=== PATIENT | female | born 1985 | race Caucasian/White ===

== ENCOUNTER 2019-09-14 11:46 | Inpatient (IN) ==
[2019-09-14] MEDS ORDERED: OXYTOCIN 30 UNITS/500 ML BAG IV PRN (12:17)
--- NOTE | 2019-09-14 12:24 | Labor Progress Brief Note ---
Date of Service September 14, 2019 Subjective Review of Systems All systems reviewed & are unremarkable except as noted in HPI & below Assessment & Plan (1) PROM (premature rupture of membranes): PROM confirmed - ruptured for clear, cervix unripe. Begin IOL. Discussed with patient and given she is breathing through contractions every 3-4 min, will not use cytotec and will instead go directly to pitocin. Epidural on request. Physical Exam Constitutional: WD/WN, vitals as above Eyes: PERRL, conjunctivae normal, anicteric sclerae ENMT: external ear and nose normal, oropharynx normal Neck: supple Respiratory: normal respiratory effort and able to speak in complete sentences; no respiratory distress Cardiovascular: Rate/Rhythm: regular rate and regular rhythm Extremities: + pedal edema Gastrointestinal (Abdomen): Gravid / AGA, nontender Musculoskeletal: no cyanosis or clubbing, extremities motor strength 5/5 Skin: no rashes, warm and dry Neurologic: patellar DTR's 2+ bilat, sensation intact Psychiatric: A+Ox3, euthymic affect Genitourinary: Speculum/Bimanual Exam: no vaginal lesions, no vaginal bleeding and uterus nontender OB Exam Abdomen: + vertex, + estimated weight (7) and + regular contractions (Q3) Manual OB Exam: + cervical dilation fingertip, + cervical effacement 10%, + station (medium firmness and midposition) high and + amniotic fluid clear OB Exam Monitor Tracing: + external FHT monitor used, + external uterine monitor used and + category I Lymphatic: no cervical or axillary lymphadenopathy Results & Data ([facility]) Vital Signs (Past 12 Hours) Vital Signs Temp Pulse Resp BP 09/14/19 11:56 98.6 F 82 20 115/72 Coding Level of Care Code None Diagnoses PROM (premature rupture of membranes) O42.90
[2019-09-14] MEDS: LACTATED RINGER'S 1,000 ML IV PRN ×2 (12:32→20:44)
[2019-09-14 12:40] LABS: Hemoglobin 12.2 g/dL (12.0-16.0); Mean Corpuscular Hemoglobin 29.8 pg (25-34); Mean Corpuscular Hgb Conc 32.1 g/dL (32-36); Mean Corpuscular Volume 92.7 fL (80-100); Mean Platelet Volume 12.6 fL (7.4-10.4); Platelet Count 135 K/uL (130-400); RDW Standard Deviation 44.1 fL (36.4-46.3); White Blood Count 8.42 K/uL (4.8-10.8)
[2019-09-14] MEDS: OXYTOCIN 30 UNITS/500 ML BAG IV PRN (12:48)
--- NOTE | 2019-09-14 13:58 | History & Physical Report ---
Date of Service September 14, 2019 Assessment & Plan (1) : Induction of labor History of Present Illness Primary Care Provider: Pratik Cohn MD Isabel is a 34 y/o female ; LMP on 12/02/18; to undergo IOL for PROM; no complications during this . Contractions every 3-4 min; good movement Labs: (09/14/19) Blood type: B positive Antibody screen: Neg H.2 Hct: 38.0 WBC: 8.42 Plt: 135 Rubella: Immune VDRL/RPR: Nonreactive Gonorrhea: Neg Chlamydia: Neg HIV: Neg HbSAg: Neg GBS Neg Allergies Allergy/AdvReac Type Severity Reaction Status Date / Time latex Allergy Intermediate RASH Verified 09/08/19 14:46 Home Medications Home Medications Medication Instructions Recorded Confirmed Type PNV cmb#95-ferrous fumarate-FA 1 tab PO DAILY 09/14/19 09/14/19 History [] docusate sodium [Colace] 100 mg PO DAILY 09/14/19 09/14/19 History famotidine [Pepcid] 20 mg PO DAILY 09/14/19 09/14/19 History ferrous sulfate [iron] 325 mg PO DAILY 09/14/19 09/14/19 History valacyclovir [Valtrex] 500 mg PO DAILY 09/14/19 09/14/19 History Patient History Medical History (Updated 09/14/19 @ 12:23 by Nadiya Vargas MD) Bacterial vaginosis Elective (Inactive) Encounter for anatomic survey H/O H/O Hx of varicella No chronic diseases present Ovarian cyst Pelvic inflammation in female PID (pelvic inflammatory disease) (Inactive) PID (pelvic inflammatory disease) (Inactive) Right ovarian cyst (Inactive) Surgical History (Updated 01/26/19 @ 15:01 by Rosalva Flores) No significant past surgical history [place] teeth removed Family History (Updated 01/26/19 @ 15:38 by Rosalva Flores) Grandmother Breast cancer Mother Cervical cancer Father Depression Social History (Updated 01/26/19 @ 15:03 by Rosalva Flores) Preferred Language: Burkinan Communication Ability: Effective Engine Oiler Required: No Beliefs That Will Affect Care: None marital status: Single marital status details: FOB :Lamin Dorantes (30) [phone] Current Living Situation: Family and Significant Other Current Living Situation Comment: lives between FOB and parents, no pets current occupational status: employed 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 Other Information That Helps Us Care for You: No Feels Safe at Home: Yes Safety Concerns: Feels Safe At This Time Smoking Status: Former smoker Tobacco Type: cigarettes ; Cigarettes Per Day: 4 ; Do You Dip or Chew Tobacco: No ; Second Hand Exposure: No ; Tobacco Cessation Education Requested by Patient: No Hx Alcohol Use: No Hx Substance Use: No Review of Systems Constitutional: denies fever, chills, sweat, headache Respiratory: denies shortness of breath, difficulty breathing Cardiac: denies chest pain, palpitations, chest pressure Breast: denies breast pain : denies dysuria Physical Exam Respiratory: normal respiratory effort, lungs clear to auscultation Cardiovascular: RRR, no murmur, no edema Musculoskeletal: Extremities: extremities normal to inspection Skin: no rashes, warm and dry Psychiatric: A+Ox3, euthymic affect Genitourinary: OB Exam Monitor Tracing: + external FHT monitor used, + external uterine monitor used, + category I and + normal FHT variability Results & Data Vital Signs (Past 12 Hours) Vital Signs Temp Pulse Resp BP 09/14/19 12:57 86 128/71 09/14/19 11:56 37 C 82 20 115/72 Code Status & VTE Plan VTE Prophylaxis Plan VTE Prophylaxis will be ordered: Yes
--- NOTE | 2019-09-14 19:59 | Labor Progress Brief Note ---
Date of Service September 14, 2019 Subjective RN called me saying patient "had concerns she only wanted to discuss with doctor." I entered the room and nurse did not immediately join me; she was at nursing station. Patient requested to be checked so she could use that info to help her decide if she wanted an epidural. We discussed risks of exams and she wanted to proceed. Noticeably uncomfortable through contractions but able to talk both between and during them. Assessment & Plan (1) PROM (premature rupture of membranes): Patient elects to continue laboring without epidural for now. Discussed expected course of labor, timeline, typical symptoms to expect, and reasons to limit oral intake (she asks if OK to have drea bar vs just sips of clears). All questions answered to her satisfaction. Physical Exam Physical Exam: FHT Cat 1 Cvx /-2 Clear LOF continues [place] Q4-5 Results & Data ([facility]) Vital Signs (Past 12 Hours) Vital Signs Temp Pulse Resp BP 09/14/19 19:36 85 104/59 L 09/14/19 19:25 98.6 F 18 09/14/19 18:40 69 109/64 09/14/19 17:35 67 113/66 09/14/19 16:35 97.9 F 71 20 118/78 09/14/19 15:34 74 107/62 09/14/19 15:14 68 116/71 09/14/19 14:31 99.1 F 80 20 122/78 09/14/19 13:55 83 20 126/59 L 09/14/19 12:57 86 128/71 09/14/19 11:56 98.6 F 82 20 115/72 Coding Level of Care Code None Diagnoses PROM (premature rupture of membranes) O42.90
[2019-09-14] MEDS: FAMOTIDINE 20 MG TAB PO SCH (21:13)
[2019-09-14] MEDS ORDERED: BUPIVACAINE 0.25% 30 ML VIAL ONE (23:12)
[2019-09-14] MEDS ORDERED: ePHEDrine sulfate 50 MG/ML AMP ONE (23:12)
[2019-09-14] MEDS ORDERED: fentaNYL citrate 100 MCG/2 ML VIAL ONE (23:12)
[2019-09-14] MEDS ORDERED: fentaNYL 2MCG/ML ROPIV 1.25MG/ML 100 ML BAG EPI ONE (23:13)
[2019-09-14] MEDS ORDERED: NALOXONE HCL 1 MG in SODIUM CHLORIDE 0.9% 1000ML 1,000 ML IV PRN (23:28)
[2019-09-14] MEDS ORDERED: ONDANSETRON INJ 2 MG/ML 2 ML VIAL IV PRN (23:28)
[2019-09-14] MEDS ORDERED: DiphenhydrAMINE HCL 50 MG/ML VIAL IV PRN (23:28)
[2019-09-14] MEDS ORDERED: ePHEDrine sulfate 50 MG/ML AMP IV PRN (23:28)
[2019-09-14] MEDS ORDERED: NALOXONE HCL 0.4 MG/1 ML VIAL/CARP IV PRN (23:28)
--- NOTE | 2019-09-14 23:33 | Anesthesiology Consultation ---
Date of Service September 14, 2019 Assessment & Plan Chart Review Chart Review: Patient NOT seen in Pre Admission Testing and Acceptable Risk for Labor Epidural Consults Requested none ASA ASA2 Proposed Anesthesia Anesthesia Type: Labor Epidural and CSE Risk / Benefits Reviewed With: PT / POA / Parent / Guardian, Accepts Plan and Informed Consent Obtained History Height/Weight Height: 5 ft 2.75 in Weight: 75.75 kg Allergies Allergy/AdvReac Type Severity Reaction Status Date / Time latex Allergy Intermediate RASH Verified 09/08/19 14:46 Medications Home Medications Medication Instructions Recorded Confirmed Last Taken PNV cmb#95-ferrous fumarate-FA 1 tab PO DAILY 09/14/19 09/14/19 09/14/19 00:30 [] docusate sodium [Colace] 100 mg PO DAILY 09/14/19 09/14/19 Unknown famotidine [Pepcid] 20 mg PO DAILY 09/14/19 09/14/19 09/14/19 00:30 ferrous sulfate [iron] 325 mg PO DAILY 09/14/19 09/14/19 09/14/19 00:30 valacyclovir [Valtrex] 500 mg PO DAILY 09/14/19 09/14/19 09/14/19 00:30 Active Medications Generic Name Dose Route Start Last Admin Trade Name Freq PRN Reason Stop Dose Admin Famotidine 20 mg 09/14/19 21:00 09/14/19 21:13 Pepcid PO 10/14/19 20:59 20 mg QAM MARLIN Administration Lactated Ringer's 1,000 mls @ 125 mls/hr 09/14/19 12:17 09/14/19 20:44 Lr IV 09/16/19 12:16 125 mls/hr .Q8H PRN Administration L&D Protocol Protocol Oxytocin 30 units in 500 mls @ 11 mls/hr 09/14/19 12:17 09/14/19 19:01 Pitocin IV 09/16/19 12:16 0.66 units/hr .Q24H PRN 11 mls/hr Labor Induction/Augmentation Titration Protocol 0.66 UNITS/HR Valacyclovir HCl 500 mg 09/15/19 09:00 09/14/19 22:24 Valtrex PO 09/22/19 08:59 500 mg DAILY MARLIN Administration NPO Date Last Intake of Fluids: 09/14/19 Time Last Intake of Fluids: 22:30 Date Last Intake of Solids: 09/14/19 Time Last Intake of Solids: 07:00 Past Medical History Medical History Bacterial vaginosis Elective (Inactive) Encounter for anatomic survey H/O H/O Hx of varicella No chronic diseases present Ovarian cyst Pelvic inflammation in female PID (pelvic inflammatory disease) (Inactive) PID (pelvic inflammatory disease) (Inactive) Right ovarian cyst (Inactive) Exercise / Class Metabolic Activity II 4-5 Yardwork/Stairs/Walk up hill Past Family History Family History Grandmother Breast cancer Mother Cervical cancer Father Depression Past Surgical History Surgical History No significant past surgical history [place] teeth removed Past Anesthesia History No Hx of Anesthesia Complications and No Family Hx of Anesthesia Complications History of PONV No Hx of PONV and No Hx of Motion Sickness Social History Smoking Status: Former smoker tobacco type: cigarettes Smoking cigarettes per day: 4 Do You Dip or Chew Tobacco: No Hx Alcohol Use: No Hx Substance Use: No Review of Systems no chest pain or sob Physical Exam Vital Signs Last Vital Signs Temp 36.9 C 09/14/19 21:42 Pulse 72 09/14/19 23:25 Resp 18 09/14/19 19:25 BP 109/67 09/14/19 22:36 Pulse Ox 98 09/14/19 23:25 ENMT Mouth: no TMJ abnormality Thyromental Distance: > or= 3.5 Finger Breadths Mallampati Class: II Neck normal visual inspection Respiratory normal respiratory effort Auscultation: lungs clear to auscultation bilaterally Cardiovascular Rate/Rhythm: regular rate and regular rhythm Musculoskeletal Spine: normal cervical ROM Neurologic moves all extremities Psychiatric Orientation: alert and oriented x 3 Testing Laboratory Results 09/14/19 12:23
--- NOTE | 2019-09-15 03:33 | Labor Progress Brief Note ---
Date of Service September 15, 2019 Subjective Comfortable with epidural. Assessment & Plan (1) PROM (premature rupture of membranes): Continue IOL. Physical Exam Genitourinary: 1-2/50/-2 50% FHT Cat 1 [place] Q2-3 Pit @ 19 Results & Data ([facility]) Vital Signs (Past 12 Hours) Vital Signs Temp Pulse Resp BP Pulse Ox 09/15/19 03:26 65 116/65 09/15/19 03:25 72 99 09/15/19 03:20 68 98 09/15/19 03:19 84 93 09/15/19 03:16 73 94/55 L 09/15/19 03:15 63 97 09/15/19 03:10 74 98 09/15/19 03:05 76 98 09/15/19 03:00 76 98 09/15/19 02:57 69 109/68 09/15/19 02:55 74 99 09/15/19 02:50 69 97 09/15/19 02:45 73 97 09/15/19 02:41 66 104/55 L 09/15/19 02:40 62 97 09/15/19 02:35 64 97 09/15/19 02:30 66 97 09/15/19 02:25 66 102/57 L 97 09/15/19 02:20 69 97 09/15/19 02:15 64 97 09/15/19 02:11 64 105/58 L 09/15/19 02:10 66 97 09/15/19 02:05 70 97 09/15/19 02:00 69 97 09/15/19 01:55 66 97/57 L 97 09/15/19 01:50 70 97 09/15/19 01:45 68 97 09/15/19 01:40 62 104/60 97 09/15/19 01:35 66 97 09/15/19 01:30 65 98 09/15/19 01:25 64 102/57 L 97 09/15/19 01:20 67 16 97 09/15/19 01:15 76 97 09/15/19 01:10 63 114/62 97 09/15/19 01:05 73 99 09/15/19 01:00 72 97 09/15/19 00:56 75 116/61 09/15/19 00:55 74 98 09/15/19 00:50 65 98 09/15/19 00:46 98.2 F 18 09/15/19 00:45 66 99 09/15/19 00:41 64 115/71 09/15/19 00:40 63 99 09/15/19 00:35 61 99 09/15/19 00:30 66 98 09/15/19 00:27 66 102/64 09/15/19 00:25 69 99 09/15/19 00:20 68 99 09/15/19 00:15 70 98 09/15/19 00:10 76 98 09/15/19 00:09 71 110/59 L 09/15/19 00:08 16 09/15/19 00:05 75 113/55 L 99 09/15/19 00:00 73 99 09/14/19 23:59 68 104/59 L 09/14/19 23:55 72 108/57 L 99 09/14/19 23:50 85 99 09/14/19 23:49 77 120/57 L 09/14/19 23:48 18 09/14/19 23:45 73 118/56 L 99 09/14/19 23:40 85 100 09/14/19 23:35 82 99 09/14/19 23:30 70 98 09/14/19 23:25 72 98 09/14/19 22:36 82 109/67 09/14/19 21:42 98.4 F 72 115/72 09/14/19 20:36 73 114/66 09/14/19 19:36 85 104/59 L 09/14/19 19:25 98.6 F 18 09/14/19 18:40 69 109/64 09/14/19 17:35 67 113/66 09/14/19 16:35 97.9 F 71 20 118/78 09/14/19 15:34 74 107/62 Coding Level of Care Code None Diagnoses PROM (premature rupture of membranes) O42.90
[2019-09-15] MEDS ORDERED: ACETAMINOPHEN 325 MG TAB PO PRN (03:46)
[2019-09-15] MEDS ORDERED: ACETAMINOPHEN 325 MG TAB ONE (03:53)
[2019-09-15] MEDS ORDERED: Nursing to Pharmacy Communication SCH (05:15)
--- NOTE | 2019-09-15 07:06 | Labor Progress Brief Note ---
Date of Service September 15, 2019 Subjective Comfortable with epidural. Ate breakfast during the break from pitocin. Assessment & Plan (1) PROM (premature rupture of membranes): PROM yesterday, IOL begun with pitocin given active ctx on arrival. Will resume pitocin this morning to continue induction now that receptors have had a chance to desaturate and patient has had a break to eat a light meal. Physical Exam Physical Exam: T Cat 1 [place] few rare ctx. Cervix not re-examined; anticipate still 1-2cm as several hours ago. LOF continues clear. Results & Data ([facility]) Vital Signs (Past 12 Hours) Vital Signs Temp Pulse Resp BP Pulse Ox 09/15/19 07:00 84 97 09/15/19 06:55 82 101/51 L 98 09/15/19 06:50 88 99 09/15/19 06:45 102 H 100 09/15/19 06:40 87 18 106/55 L 98 09/15/19 06:35 96 H 98 09/15/19 06:30 92 H 99 09/15/19 06:25 96 H 107/56 L 99 09/15/19 06:20 95 H 100 09/15/19 06:15 98 H 98 09/15/19 06:12 93 H 101/61 09/15/19 06:11 97.9 F 18 09/15/19 06:10 72 98 09/15/19 06:05 86 98 09/15/19 06:00 75 98 09/15/19 05:56 61 84/50 L 09/15/19 05:55 58 L 97 09/15/19 05:50 60 98 09/15/19 05:45 86 98 09/15/19 05:40 64 95/51 L 98 09/15/19 05:35 60 97 09/15/19 05:30 65 90/50 L 99 09/15/19 05:29 64 89/54 L 09/15/19 05:26 63 89/53 L 09/15/19 05:25 59 L 97 09/15/19 05:20 64 97 09/15/19 05:15 66 97 09/15/19 05:10 62 93/52 L 98 09/15/19 05:05 62 98 09/15/19 05:00 97.9 F 69 18 98 09/15/19 04:56 62 91/52 L 07/14/20 04:55 65 98 09/15/19 04:50 67 97 09/15/19 04:45 65 98 09/15/19 04:40 68 101/58 L 98 09/15/19 04:35 66 99 09/15/19 04:30 66 98 09/15/19 04:26 66 97/56 L 09/15/19 04:25 68 98 09/15/19 04:20 65 98 09/15/19 04:15 68 98 09/15/19 04:12 67 96/56 L 09/15/19 04:10 64 98 09/15/19 04:05 63 97 09/15/19 04:00 71 98 09/15/19 03:57 64 101/59 L 09/15/19 03:55 70 98 09/15/19 03:50 64 98 09/15/19 03:45 66 99 09/15/19 03:40 67 97/61 L 98 09/15/19 03:39 97.9 F 18 09/15/19 03:35 64 99 09/15/19 03:30 66 99 09/15/19 03:26 65 116/65 09/15/19 03:25 72 99 09/15/19 03:20 68 98 09/15/19 03:19 84 93 09/15/19 03:16 73 94/55 L 09/15/19 03:15 63 97 09/15/19 03:10 74 98 09/15/19 03:05 76 98 09/15/19 03:00 76 98 09/15/19 02:57 69 109/68 09/15/19 02:55 74 99 09/15/19 02:50 69 97 09/15/19 02:45 73 97 09/15/19 02:41 66 104/55 L 09/15/19 02:40 62 97 09/15/19 02:35 64 97 09/15/19 02:30 66 97 09/15/19 02:25 66 102/57 L 97 09/15/19 02:20 69 97 09/15/19 02:15 64 97 09/15/19 02:11 64 105/58 L 09/15/19 02:10 66 97 09/15/19 02:05 70 97 09/15/19 02:00 69 97 09/15/19 01:55 66 97/57 L 97 09/15/19 01:50 70 97 09/15/19 01:45 68 97 09/15/19 01:40 62 104/60 97 09/15/19 01:35 66 97 09/15/19 01:30 65 98 09/15/19 01:25 64 102/57 L 97 09/15/19 01:20 67 16 97 09/15/19 01:15 76 97 09/15/19 01:10 63 114/62 97 09/15/19 01:05 73 99 09/15/19 01:00 72 97 09/15/19 00:56 75 116/61 09/15/19 00:55 74 98 09/15/19 00:50 65 98 09/15/19 00:46 98.2 F 18 09/15/19 00:45 66 99 09/15/19 00:41 64 115/71 09/15/19 00:40 63 99 09/15/19 00:35 61 99 09/15/19 00:30 66 98 09/15/19 00:27 66 102/64 09/15/19 00:25 69 99 09/15/19 00:20 68 99 09/15/19 00:15 70 98 09/15/19 00:10 76 98 09/15/19 00:09 71 110/59 L 09/15/19 00:08 16 09/15/19 00:05 75 113/55 L 99 09/15/19 00:00 73 99 09/14/19 23:59 68 104/59 L 09/14/19 23:55 72 108/57 L 99 09/14/19 23:50 85 99 09/14/19 23:49 77 120/57 L 09/14/19 23:48 18 09/14/19 23:45 73 118/56 L 99 09/14/19 23:40 85 100 09/14/19 23:35 82 99 09/14/19 23:30 70 98 09/14/19 23:25 72 98 09/14/19 22:36 82 109/67 09/14/19 21:42 98.4 F 72 115/72 09/14/19 20:36 73 114/66 09/14/19 19:36 85 104/59 L 09/14/19 19:25 98.6 F 18 Coding Level of Care Code None Diagnoses PROM (premature rupture of membranes) O42.90
[2019-09-15] MEDS: fentaNYL 2MCG/ML ROPIV 1.25MG/ML 100 ML BAG EPI PRN ×4 (07:27→23:07)
[2019-09-15] MEDS: LACTATED RINGER'S 1,000 ML IV PRN ×3 (07:31→23:03)
[2019-09-15] MEDS: FAMOTIDINE 20 MG TAB PO SCH ×2 (07:42→15:24)
[2019-09-15] MEDS ORDERED: VALACYCLOVIR HCL 500 MG TABLET PO SCH (09:00)
[2019-09-15] MEDS ORDERED: FAMOTIDINE 20 MG TAB PO SCH (09:00)
--- NOTE | 2019-09-15 09:04 | Labor Progress Brief Note ---
Date of Service September 15, 2019 Subjective Reason For Note: Other (Change of shift) The patient is a 34-year-old 3 para 0 with an EDC of 07 September, at 41 weeks gestational age who was admitted approximately 20 hours ago for premature rupture membranes. Patient states that the membranes ruptured at 07 30 on 13 September. She denied contractions or vaginal bleeding. The patient's course was remarkable for a high-grade Pap smear. 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 The patient was admitted where rupture of membranes was confirmed, and the patient was started on Pitocin. She progressed into a regular labor pattern became uncomfortable and an epidural was placed. Pitocin was discontinued for several hours to allow the patient to rest and eat and was restarted this a.m. Assessment & Plan (1) PROM (premature rupture of membranes): - heart rate tracing category 2 with moderate variability and accelerations -Membranes now ruptured for greater than 24 hours, patient is afebrile, GBS negative -No indications for antibiotics at this time -Will increase Pitocin per induction protocol -All questions answered of the patient Admission and Anticipated Discharge Date Admission Date: September 14, 2019 Physical Exam Gastrointestinal (Abdomen): Gravid, vertex, positive heart tones, e stimated weight of 8 and half pounds Genitourinary: Cervix: 2 cm / 50%/-3 station, intrauterine pressure catheter placed Results & Data ([facility]) Vital Signs (Past 12 Hours) Vital Signs Temp Pulse Resp BP Pulse Ox 09/15/19 08:56 85 116/62 99 09/15/19 08:51 85 99 09/15/19 08:40 94 H 98 09/15/19 08:35 93 H 99 09/15/19 08:30 76 98 09/15/19 08:25 78 87/51 L 97 09/15/19 08:20 94 H 98 09/15/19 08:15 78 98 09/15/19 08:10 78 89/51 L 98 09/15/19 08:05 75 98 09/15/19 08:00 76 97 09/15/19 07:55 77 91/53 L 98 09/15/19 07:50 77 98 09/15/19 07:45 82 98 09/15/19 07:40 75 97/50 L 98 09/15/19 07:35 89 98 09/15/19 07:30 83 98 09/15/19 07:25 79 94/54 L 97 09/15/19 07:20 81 98 09/15/19 07:15 84 97 09/15/19 07:10 98.4 F 82 16 96/51 L 97 09/15/19 07:05 81 98 09/15/19 07:00 84 97 09/15/19 06:55 82 101/51 L 98 09/15/19 06:50 88 99 09/15/19 06:45 102 H 100 09/15/19 06:40 87 18 106/55 L 98 09/15/19 06:35 96 H 98 09/15/19 06:30 92 H 99 09/15/19 06:25 96 H 107/56 L 99 09/15/19 06:20 95 H 100 09/15/19 06:15 98 H 98 09/15/19 06:12 93 H 101/61 09/15/19 06:11 97.9 F 18 09/15/19 06:10 72 98 09/15/19 06:05 86 98 09/15/19 06:00 75 98 09/15/19 05:56 61 84/50 L 09/15/19 05:55 58 L 97 09/15/19 05:50 60 98 09/15/19 05:45 86 98 09/15/19 05:40 64 95/51 L 98 09/15/19 05:35 60 97 09/15/19 05:30 65 90/50 L 99 09/15/19 05:29 64 89/54 L 09/15/19 05:26 63 89/53 L 09/15/19 05:25 59 L 97 09/15/19 05:20 64 97 09/15/19 05:15 66 97 09/15/19 05:10 62 93/52 L 98 09/15/19 05:05 62 98 09/15/19 05:00 97.9 F 69 18 98 09/15/19 04:56 62 91/52 L 09/15/19 04:55 65 98 09/15/19 04:50 67 97 09/15/19 04:45 65 98 09/15/19 04:40 68 101/58 L 98 09/15/19 04:35 66 99 09/15/19 04:30 66 98 09/15/19 04:26 66 97/56 L 09/15/19 04:25 68 98 09/15/19 04:20 65 98 09/15/19 04:15 68 98 09/15/19 04:12 67 96/56 L 09/15/19 04:10 64 98 09/15/19 04:05 63 97 09/15/19 04:00 71 98 09/15/19 03:57 64 101/59 L 09/15/19 03:55 70 98 09/15/19 03:50 64 98 09/15/19 03:45 66 99 09/15/19 03:40 67 97/61 L 98 09/15/19 03:39 97.9 F 18 09/15/19 03:35 64 99 09/15/19 03:30 66 99 09/15/19 03:26 65 116/65 09/15/19 03:25 72 99 09/15/19 03:20 68 98 09/15/19 03:19 84 93 09/15/19 03:16 73 94/55 L 09/15/19 03:15 63 97 09/15/19 03:10 74 98 09/15/19 03:05 76 98 09/15/19 03:00 76 98 09/15/19 02:57 69 109/68 09/15/19 02:55 74 99 09/15/19 02:50 69 97 09/15/19 02:45 73 97 09/15/19 02:41 66 104/55 L 09/15/19 02:40 62 97 09/15/19 02:35 64 97 09/15/19 02:30 66 97 09/15/19 02:25 66 102/57 L 97 09/15/19 02:20 69 97 09/15/19 02:15 64 97 09/15/19 02:11 64 105/58 L 09/15/19 02:10 66 97 09/15/19 02:05 70 97 09/15/19 02:00 69 97 09/15/19 01:55 66 97/57 L 97 09/15/19 01:50 70 97 09/15/19 01:45 68 97 09/15/19 01:40 62 104/60 97 09/15/19 01:35 66 97 09/15/19 01:30 65 98 09/15/19 01:25 64 102/57 L 97 09/15/19 01:20 67 16 97 09/15/19 01:15 76 97 09/15/19 01:10 63 114/62 97 09/15/19 01:05 73 99 09/15/19 01:00 72 97 09/15/19 00:56 75 116/61 09/15/19 00:55 74 98 09/15/19 00:50 65 98 09/15/19 00:46 98.2 F 18 09/15/19 00:45 66 99 09/15/19 00:41 64 115/71 09/15/19 00:40 63 99 09/15/19 00:35 61 99 09/15/19 00:30 66 98 09/15/19 00:27 66 102/64 09/15/19 00:25 69 99 09/15/19 00:20 68 99 09/15/19 00:15 70 98 09/15/19 00:10 76 98 09/15/19 00:09 71 110/59 L 09/15/19 00:08 16 09/15/19 00:05 75 113/55 L 99 09/15/19 00:00 73 99 09/14/19 23:59 68 104/59 L 09/14/19 23:55 72 108/57 L 99 09/14/19 23:50 85 99 09/14/19 23:49 77 120/57 L 09/14/19 23:48 18 09/14/19 23:45 73 118/56 L 99 09/14/19 23:40 85 100 09/14/19 23:35 82 99 09/14/19 23:30 70 98 09/14/19 23:25 72 98 09/14/19 22:36 82 109/67 09/14/19 21:42 98.4 F 72 115/72 Coding Level of Care Code None Diagnoses PROM (premature rupture of membranes) O42.90
[2019-09-15] MEDS ORDERED: CALCIUM CARBONATE 500 MG CHEWABLE TAB PO PRN (15:17)
--- NOTE | 2019-09-15 18:36 | Labor Progress Brief Note ---
Date of Service September 15, 2019 Subjective Reason For Note: Routine Evaluation Assessment & Plan (1) PROM (premature rupture of membranes): - tracing Cat II, moderate variability with accelerations - pitocin at 21mU, labor still inadequate at 165 - will allow pit to go to 30mU Admission and Anticipated Discharge Date Admission Date: September 14, 2019 Physical Exam Genitourinary: Cervix- 3/75/-2, forebag ruptured for copious clear fluid Results & Data ([facility]) Vital Signs (Past 12 Hours) Vital Signs Temp Pulse Resp BP Pulse Ox 09/15/19 18:27 65 92/55 L 09/15/19 18:11 74 109/62 09/15/19 18:00 18 09/15/19 17:55 71 109/69 09/15/19 17:41 81 113/71 09/15/19 17:30 18 09/15/19 17:26 79 118/67 09/15/19 17:10 89 121/66 09/15/19 17:00 16 09/15/19 16:56 81 116/61 09/15/19 16:41 82 126/76 09/15/19 16:30 98.2 F 16 09/15/19 16:27 102 H 116/79 09/15/19 16:11 86 117/62 09/15/19 16:00 16 09/15/19 15:56 80 110/69 09/15/19 15:30 16 09/15/19 15:26 87 102/60 09/15/19 15:18 82 98 09/15/19 15:13 86 98 09/15/19 15:12 76 113/69 09/15/19 15:08 73 99 09/15/19 15:03 85 100 09/15/19 15:00 98.8 F 15 09/15/19 14:58 73 100 09/15/19 14:56 83 107/68 09/15/19 14:53 74 100 09/15/19 14:49 83 92 09/15/19 14:48 84 97 09/15/19 14:43 71 111/71 100 09/15/19 14:37 71 100 09/15/19 14:32 72 99 09/15/19 14:30 16 09/15/19 14:27 68 99 09/15/19 14:26 72 127/68 09/15/19 14:22 78 99 09/15/19 14:17 82 99 09/15/19 14:12 68 110/71 100 09/15/19 14:11 78 93 09/15/19 14:07 72 98 09/15/19 14:02 69 99 09/15/19 14:00 16 09/15/19 13:57 66 98 09/15/19 13:56 60 99/55 L 09/15/19 13:52 70 97 09/15/19 13:47 68 98 09/15/19 13:44 72 112/55 L 09/15/19 13:42 64 98 09/15/19 13:40 65 82/47 L 09/15/19 13:37 65 98 09/15/19 13:32 66 98 09/15/19 13:30 18 09/15/19 13:28 68 90/51 L 09/15/19 13:27 81 98 09/15/19 13:25 62 87/51 L 09/15/19 13:22 70 97 09/15/19 13:17 71 97 09/15/19 13:12 67 91/53 L 98 09/15/19 13:07 69 97 09/15/19 13:02 71 97 09/15/19 13:00 16 09/15/19 12:57 68 88/53 L 97 09/15/19 12:52 67 97 09/15/19 12:47 69 98 09/15/19 12:45 98.2 F 09/15/19 12:42 71 98 09/15/19 12:40 59 L 89/51 L 09/15/19 12:37 67 97 09/15/19 12:32 71 97 09/15/19 12:30 16 09/15/19 12:27 69 97 09/15/19 12:26 67 92/54 L 09/15/19 12:22 64 97 09/15/19 12:17 67 97 09/15/19 12:12 73 100 09/15/19 12:11 63 92/53 L 09/15/19 12:07 80 99 09/15/19 12:01 69 97 09/15/19 12:00 16 09/15/19 11:56 69 97 09/15/19 11:55 66 100/57 L 09/15/19 11:51 72 97 09/15/19 11:47 80 91 09/15/19 11:46 69 98 09/15/19 11:41 71 98 09/15/19 11:40 64 105/57 L 09/15/19 11:36 69 99 09/15/19 11:31 73 98 09/15/19 11:30 18 09/15/19 11:26 71 97 09/15/19 11:25 67 101/57 L 09/15/19 11:21 75 97 09/15/19 11:16 74 97 09/15/19 11:11 72 97 09/15/19 11:10 73 102/58 L 09/15/19 11:06 76 97 09/15/19 11:01 83 97 09/15/19 11:00 16 09/15/19 10:56 79 111/58 L 98 09/15/19 10:51 89 99 09/15/19 10:50 80 93 09/15/19 10:46 80 99 09/15/19 10:41 84 99 09/15/19 10:40 79 98/58 L 09/15/19 10:38 82 93 09/15/19 10:36 91 H 99 09/15/19 10:33 98.1 F 16 09/15/19 10:31 85 92 09/15/19 10:26 83 97/55 L 96 09/15/19 10:21 81 96 09/15/19 10:16 83 96 09/15/19 10:11 79 97 09/15/19 10:10 84 102/58 L 09/15/19 10:06 81 96 09/15/19 10:01 82 96 09/15/19 09:56 83 97 09/15/19 09:55 82 102/61 09/15/19 09:51 82 96 09/15/19 09:46 86 96 09/15/19 09:41 95 H 122/75 98 09/15/19 09:36 83 98 09/15/19 09:31 88 98 09/15/19 09:26 90 110/67 99 09/15/19 09:21 95 H 98 09/15/19 09:16 90 99 09/15/19 09:11 91 H 119/57 L 99 09/15/19 09:06 95 H 100 09/15/19 09:01 98 H 99 09/15/19 08:56 98.4 F 85 20 116/62 99 09/15/19 08:51 85 99 09/15/19 08:40 94 H 98 09/15/19 08:35 93 H 99 09/15/19 08:30 76 98 09/15/19 08:25 78 87/51 L 97 09/15/19 08:20 94 H 98 09/15/19 08:15 78 98 09/15/19 08:10 78 89/51 L 98 09/15/19 08:05 75 98 09/15/19 08:00 76 97 09/15/19 07:55 77 91/53 L 98 09/15/19 07:50 77 98 09/15/19 07:45 82 98 09/15/19 07:40 75 97/50 L 98 09/15/19 07:35 89 98 09/15/19 07:30 83 98 09/15/19 07:25 79 94/54 L 97 09/15/19 07:20 81 98 09/15/19 07:15 84 97 09/15/19 07:10 98.4 F 82 16 96/51 L 97 09/15/19 07:05 81 98 09/15/19 07:00 84 97 09/15/19 06:55 82 101/51 L 98 09/15/19 06:50 88 99 09/15/19 06:45 102 H 100 09/15/19 06:40 87 18 106/55 L 98 09/15/19 06:35 96 H 98 Coding Level of Care Code None Diagnoses PROM (premature rupture of membranes) O42.90
[2019-09-15] MEDS: OXYTOCIN 30 UNITS/500 ML BAG IV PRN (21:44)
--- NOTE | 2019-09-16 01:28 | Labor Progress Brief Note ---
Date of Service September 16, 2019 Subjective Reason For Note: Requested By orbitread operator & Plan (1) PROM (premature rupture of membranes): - tracing Cat II - will begin 2nd Stage Admission and Anticipated Discharge Date Admission Date: September 14, 2019 Physical Exam Genitourinary: Cervix: Complete/(+)1 Results & Data ([facility]) Vital Signs (Past 12 Hours) Vital Signs Temp Pulse Resp BP Pulse Ox 09/16/19 01:25 94 H 98 09/16/19 01:20 85 98 09/16/19 01:16 93 H 141/98 H 09/16/19 01:15 98 H 94 09/16/19 01:10 93 H 95 09/16/19 01:05 100 H 95 09/16/19 01:03 81 143/65 H 09/16/19 01:00 98.8 F 86 20 95 09/16/19 00:55 96 H 95 09/16/19 00:50 86 95 09/16/19 00:45 100 H 95 09/16/19 00:40 99 H 95 09/16/19 00:35 111 H 93 09/16/19 00:31 88 127/97 09/16/19 00:30 122 H 20 94 09/16/19 00:25 110 H 95 09/16/19 00:20 96 H 96 09/16/19 00:18 100 H 166/74 H 09/16/19 00:15 113 H 88 L 09/16/19 00:10 98 H 94 09/16/19 00:05 89 94 09/16/19 00:03 83 146/116 H 09/16/19 00:00 100 H 96 09/15/19 23:59 18 09/15/19 23:56 101 H 115/84 09/15/19 23:55 97 H 95 09/15/19 23:50 87 125/75 95 09/15/19 23:45 83 125/62 95 09/15/19 23:41 92 H 119/58 L 09/15/19 23:40 94 H 94 09/15/19 23:37 75 109/55 L 09/15/19 23:35 79 95 09/15/19 23:30 81 20 109/56 L 95 09/15/19 23:25 84 95 09/15/19 23:24 82 111/62 09/15/19 23:22 80 112/62 09/15/19 23:20 75 100/59 L 95 09/15/19 23:18 75 104/58 L 09/15/19 23:17 75 106/60 09/15/19 23:15 80 95 09/15/19 23:14 75 108/56 L 09/15/19 23:12 75 117/62 09/15/19 23:10 73 109/57 L 96 09/15/19 23:08 74 114/55 L 09/15/19 23:07 75 121/56 L 09/15/19 23:05 84 97 09/15/19 23:04 76 101/55 L 09/15/19 23:02 73 113/69 09/15/19 23:00 71 20 111/68 97 09/15/19 22:59 98.6 F 09/15/19 22:55 76 96 09/15/19 22:50 82 97 09/15/19 22:45 77 120/60 98 09/15/19 22:40 80 99 09/15/19 22:35 71 99 09/15/19 22:31 68 132/64 09/15/19 22:30 69 20 100 09/15/19 22:25 75 100 09/15/19 22:20 94 H 100 09/15/19 22:15 82 145/87 H 100 09/15/19 22:10 73 99 09/15/19 22:05 78 99 09/15/19 22:01 81 129/81 09/15/19 22:00 71 20 99 09/15/19 21:55 75 98 09/15/19 21:50 85 96 09/15/19 21:47 96 H 118/61 09/15/19 21:45 100 H 100 09/15/19 21:40 75 97 09/15/19 21:35 71 98 09/15/19 21:30 77 20 112/66 98 09/15/19 21:25 69 98 09/15/19 21:20 73 98 09/15/19 21:16 75 112/67 09/15/19 21:15 68 97 09/15/19 21:10 73 98 09/15/19 21:05 72 98 09/15/19 21:01 75 117/66 09/15/19 21:00 98.1 F 73 20 97 09/15/19 20:55 72 97 09/15/19 20:50 73 97 09/15/19 20:47 71 113/69 09/15/19 20:45 69 98 09/15/19 20:40 73 98 09/15/19 20:35 72 100 09/15/19 20:30 64 16 93/55 L 98 09/15/19 20:25 68 99 09/15/19 20:20 64 99 09/15/19 20:17 67 95/50 L 09/15/19 20:15 67 97 09/15/19 20:10 66 98 09/15/19 20:05 72 99 09/15/19 20:01 64 100/59 L 09/15/19 20:00 65 100 09/15/19 19:59 20 09/15/19 19:55 75 100 09/15/19 19:50 71 100 09/15/19 19:45 80 107/59 L 99 09/15/19 19:40 70 100 09/15/19 19:35 71 99 09/15/19 19:30 76 20 105/57 L 99 09/15/19 19:25 77 100 09/15/19 19:20 78 100 09/15/19 19:15 82 99 09/15/19 19:10 85 114/59 L 99 09/15/19 19:08 80 119/72 09/15/19 19:06 76 113/60 09/15/19 19:05 98.4 F 75 20 100 09/15/19 19:04 75 103/60 09/15/19 19:01 74 93/51 L 09/15/19 19:00 70 100 09/15/19 18:55 71 100/56 L 09/15/19 18:40 72 96/54 L 09/15/19 18:27 65 92/55 L 09/15/19 18:11 74 109/62 09/15/19 18:00 18 09/15/19 17:55 71 109/69 09/15/19 17:41 81 113/71 09/15/19 17:30 18 09/15/19 17:26 79 118/67 09/15/19 17:10 89 121/66 09/15/19 17:00 16 09/15/19 16:56 81 116/61 09/15/19 16:41 82 126/76 09/15/19 16:30 98.2 F 16 09/15/19 16:27 102 H 116/79 09/15/19 16:11 86 117/62 09/15/19 16:00 16 09/15/19 15:56 80 110/69 09/15/19 15:30 16 09/15/19 15:26 87 102/60 09/15/19 15:18 82 98 09/15/19 15:13 86 98 09/15/19 15:12 76 113/69 09/15/19 15:08 73 99 09/15/19 15:03 85 100 09/15/19 15:00 98.8 F 15 09/15/19 14:58 73 100 09/15/19 14:56 83 107/68 09/15/19 14:53 74 100 09/15/19 14:49 83 92 09/15/19 14:48 84 97 09/15/19 14:43 71 111/71 100 09/15/19 14:37 71 100 09/15/19 14:32 72 99 09/15/19 14:30 16 09/15/19 14:27 68 99 09/15/19 14:26 72 127/68 09/15/19 14:22 78 99 09/15/19 14:17 82 99 09/15/19 14:12 68 110/71 100 09/15/19 14:11 78 93 09/15/19 14:07 72 98 09/15/19 14:02 69 99 09/15/19 14:00 16 09/15/19 13:57 66 98 09/15/19 13:56 60 99/55 L 09/15/19 13:52 70 97 09/15/19 13:47 68 98 09/15/19 13:44 72 112/55 L 09/15/19 13:42 64 98 09/15/19 13:40 65 82/47 L 09/15/19 13:37 65 98 09/15/19 13:32 66 98 09/15/19 13:30 18 09/15/19 13:28 68 90/51 L Coding Level of Care Code None Diagnoses PROM (premature rupture of membranes) O42.90
--- NOTE | 2019-09-16 03:58 | Delivery Summary ---
Vaginal Delivery Summary Date of Service September 16, 2019 Vaginal Delivery Summary Findings: Viable female with Apgars of 8 and 9. Baby delivered over a midline episiotomy with nuchal cord x1. Cord gases and cord blood samples obtained. Placenta delivered spontaneously. Episiotomy repaired with 4-0 and 2-0 Vicryl. Estimated blood loss 300 cc. Labor note: The patient is a 34-year-old 3 para 0, with an EDC of 07 September, at 41 weeks gestational age, who was admitted with premature rupture of the membranes. Patient states that the membranes ruptured at approximately 0730 hrs. on 13 September. She described the fluid is clear. She was having mild contractions after rupture of membranes. The patient's course was remarkable for an abnormal Pap smear. She had a high-grade Pap and had colposcopic directed biopsies. Biopsy showed ROSALBA-3. 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 Upon admission rupture of membranes was documented. Patient was dawn every 5 minutes and uncomfortable and was started on Pitocin. Patient received Pitocin for approximately 12 hours with minimal cervical change. Patient was uncomfortable and had an epidural placed. Pitocin was discontinued for several hours and the patient was allowed to eat breakfast. Pitocin was reinitiated at 0700 hrs. on 14 September. Delivering physician assumed care for the patient. The patient was afebrile at this point, with a category 2 tracing. 6 hours later patient was reexamined and was 2 cm dilated and a fore bag could be palpated. Patient had rupture of membranes for a copious amount of clear fluid and an intrauterine pressure catheter was placed. The patient became more at depth at this point and the contractions increased in intensity. Pitocin was titrated up to have an adequate labor pattern. The patient progressed to full dilatation and began her second stage. She pushed for 2 hours. Just prior to delivery the patient spiked a temperature to 102.9. Baby delivered over a midline episiotomy. Nuchal cord x1 was reduced on the perineum. Cord gases and cord blood samples were obtained and the placenta was sent for pathological evaluation. Midline episiotomy was repaired with 4-0 and 2-0 Vicryl in a routine fashion. Estimated blood loss was 300 cc. Sponge and needle count was correct.
[2019-09-16] MEDS ORDERED: SUPERCREAM 0.870% 15 GM JAR EXT PRN (04:06)
[2019-09-16] MEDS ORDERED: BENZOCAINE 20% AER SPR 82.5 GM CAN EXT PRN (04:06)
[2019-09-16] MEDS ORDERED: HYDROCORTISONE ACETATE 25 MG SUPP PR PRN (04:06)
[2019-09-16] MEDS ORDERED: ACETAMINOPHEN 325 MG TAB PO PRN (04:06)
[2019-09-16] MEDS ORDERED: OXYTOCIN 30 UNITS/500 ML BAG IV PRN (04:06)
[2019-09-16] MEDS ORDERED: DIPHTHERIA/TETANUS/PERTUSSIS 0.5 ML SYR/VIAL IM ONE (04:06)
[2019-09-16 04:14] LABS: Cord Venous Blood HCO3 20 mmol/L (18.4-26.8); Cord Venous Blood PCO2 43 mmHg (30.4-57.2); Cord Venous Blood PO2 27 mmHg (14.1-43.3); Cord Venous Blood pH 7.29 (7.20-7.44)
[2019-09-16 04:15] LABS: Base Excess Cord Arterial Bld -8.1 mEq/L (-9-1.8); CO2 Cord Arterial Blood 49 mmHg (39.1-73.5); HCO3 Cord Arterial Blood 20 mmol/L (19.7-28.5); PO2 Cord Arterial Blood 33 mmHg (4.1-31.7); pH Cord Arterial Blood 7.23 (7.1-7.38)
[2019-09-16] MEDS ORDERED: IBUPROFEN 600 MG TAB PO ONE (04:18)
[2019-09-16] MEDS: IBUPROFEN 600 MG TAB PO PRN ×3 (04:18→20:38)
[2019-09-16 04:27] LABS: O2 Saturation Cord Venous Bld < 60.0 % (<68)
[2019-09-16] MEDS: ACETAMINOPHEN W/CODEINE #3 1 TAB PO PRN ×3 (07:12→22:15)
[2019-09-16] MEDS: DOCUSATE SODIUM 100 MG CAP PO SCH ×2 (07:15→20:38)
[2019-09-16] MEDS: PRENATAL VITAMIN 1 TAB PO SCH (07:15)
[2019-09-16] MEDS: FERROUS SULFATE 325 MG TAB PO SCH (07:15)
--- NOTE | 2019-09-16 07:20 | Anesthesia Procedure Note ---
Date of Service September 16, 2019 Anesthesia Post Epidural Note Vital Signs Vital Signs: Temp Pulse Resp BP Pulse Ox 37.2 C 70 20 104/56 L 78 L 09/16/19 05:45 09/16/19 07:04 09/16/19 05:45 09/16/19 07:04 09/16/19 05:17 Pain Intensity Lower Abdomen: Pain Intensity: 4 Notes Mental Status: alert / awake / arousable and participated in evaluation Nausea / Vomiting: adequately controlled Pain: adequately controlled Airway Patency, RR, SpO2: stable & adequate BP & HR: stable & adequate Hydration State: stable & adequate Neuraxial Anesthesia: was administered and sensory block is resolving Anesthetic Complications: no major complications apparent and Pt Satisfied with anesthetic care Epidural: Removed without complications and With tip intact
[2019-09-16] MEDS: VALACYCLOVIR HCL 500 MG TABLET PO SCH (08:09)
[2019-09-17] MEDS: IBUPROFEN 600 MG TAB PO PRN ×4 (03:01→20:14)
--- NOTE | 2019-09-17 07:47 | Obstetrical Progress Note ---
Date of Service September 17, 2019 Assessment & Plan (1) PROM (premature rupture of membranes): PPD #1 Continue current care Subjective Ambulation: ambulating normally Voiding: no voiding problems Diet Tolerance:: regular diet Lochia:: Small Current Pain Level(1-10): 2 Physical Exam Constitutional WD/WN, vitals as above Gastrointestinal (Abdomen) normal bowel sounds, soft, nontender, no hepatosplenomegaly (ext neg, ut firm) Results & Data ([facility]) Vital Signs (Past 12 Hours) Vital Signs Temp Pulse Resp BP Pulse Ox 09/17/19 00:30 97.7 F 77 16 117/82 99 09/16/19 20:40 97.5 F L 86 18 109/71
[2019-09-17] MEDS: DOCUSATE SODIUM 100 MG CAP PO SCH ×2 (09:28→20:10)
[2019-09-17] MEDS: PRENATAL VITAMIN 1 TAB PO SCH (09:28)
[2019-09-17] MEDS: FERROUS SULFATE 325 MG TAB PO SCH (09:28)
[2019-09-17] MEDS: VALACYCLOVIR HCL 500 MG TABLET PO SCH ×3 (09:29→20:10)
--- NOTE | 2019-09-17 12:29 | Obstetrical Progress Note ---
Date of Service September 17, 2019 Physical Exam General: Alert, oriented. No acute distress. Cardiac: Regular rate and rhythm, no murmurs/rubs/gallops. Respiratory: Clear to auscultation anterior and posteriorly, no wheezes/rales/rhonchi. No increased work of breathing. Symmetrical chest rise. No respiratory distress. Abdomen: Soft, nontender, nondistended. Bowel sounds present. Uterus: Uterine fundus firm, palpable _cm below umbilicus. surgical incision intact, clean, dry. No warmth, erythema, discharge, or dehiscence. Lower Extremities: No lower extremity edema or swelling. No deep calf pain. Braydon's negative bilaterally. Denies fever, chills, sweats Denies shortness of breath, difficulty breathing, chest pain, pal Denies fever, chills, sweats Denies shortness of breath, difficulty breathing, chest pain, palpitations, chest pressure. Denies breast pain. Denies dysuria. Denies headache. Results & Data Vital Signs (Past 12 Hours) Vital Signs Temp Pulse Resp BP Pulse Ox 09/17/19 07:40 36.4 C L 86 18 92/54 L 97 09/17/19 00:30 36.5 C 77 16 117/82 99
[2019-09-17] MEDS ORDERED: bisacodyL 5 MG TABEC PO SCH (20:00)
[2019-09-18] MEDS: IBUPROFEN 600 MG TAB PO PRN ×3 (03:04→14:58)
--- NOTE | 2019-09-18 06:21 | Obstetrical Progress Note ---
Date of Service <Rei Schwarz MD - Last Filed: 09/18/19 06:23> September 18, 2019 Assessment & Plan <Rei Schwarz MD - Last Filed: 09/18/19 06:23> (1) : - Feels well today. Eating well, voiding well, ambulating well. - Pain well controlled with analgesics. - Routine care. - After discharge will have follow-up at 6 weeks. Subjective <Rei Schwarz MD - Last Filed: 09/18/19 06:23> Isabel is a 34 y/o female ; PPD #2 following spontaneous vaginal delivery at 40+ weeks; doing well this morning; light abdominal cramping & 2/10 pain well managed on analgesics; voiding well; tolerating meals overnight and able to ambulate some; some persistent spotting with some improvement this morning. Says she is ready to go home. Review of Systems Constitutional: denies fever, chills, sweat, headache Respiratory: denies shortness of breath, difficulty breathing Cardiac: denies chest pain, palpitations, chest pressure Breast: denies breast pain : denies dysuria Physical Exam <Rei Schwarz MD - Last Filed: 09/18/19 06:23> General: Alert, oriented. No acute distress. Cardiac: Regular rate and rhythm, no murmurs/rubs/gallops. Respiratory: Clear to auscultation bilaterally a/p, no wheezes/rales/rhonchi. No increased work of breathing. Symmetrical chest rise. No respiratory distress. Abdomen: Soft, nontender, nondistended. Bowel sounds present. Uterus: Uterine fundus firm, palpable 2cm below umbilicus. Lower Extremities: No lower extremity edema or swelling. No deep calf pain. Braydon's negative bilaterally. Results & Data <Rei Schwarz MD - Last Filed: 09/18/19 06:23> Vital Signs (Past 12 Hours) Vital Signs Temp Pulse Resp BP Pulse Ox 09/17/19 23:50 36.4 C L 72 17 109/68 99 <Rhea Miguel MD, FACOG - Last Filed: 09/18/19 09:27> Co-Signing Physician Notes Resident Physician Supervision Note: I interviewed and examined the patient. Discussed with Dr. Garcia and agree with findings and plan as documented in the note. Any exceptions or clarifications are listed here: [None] Documented By: Rhea Miguel MD, FACOG Resident Activity Tracking <Rei Schwarz MD - Last Filed: 09/18/19 06:23> Resident Involvement: Resident Care Provided Care Provided: OB Delivery
[2019-09-18 06:38] LABS: Hematocrit (blood only) 27.6 % (37-47); Hemoglobin 9.2 g/dL (12.0-16.0)
[2019-09-18] MEDS: DOCUSATE SODIUM 100 MG CAP PO SCH (08:15)
[2019-09-18] MEDS: FERROUS SULFATE 325 MG TAB PO SCH (08:15)
[2019-09-18] MEDS: VALACYCLOVIR HCL 500 MG TABLET PO SCH (08:16)
[2019-09-18] MEDS: PRENATAL VITAMIN 1 TAB PO SCH (08:16)
== END 2019-09-18 15:14 | disposition home or self-care (01) | DRG 807 ==
LOC: 4S1 11:47 → OPB 11:47 → 4S1 11:51 → 4N 09-16 11:00